=== PATIENT | male | born 1970 | race Two or more races ===

== ENCOUNTER 2018-08-25 10:14 | Emergency (ER) | payer MEDICAID ==
[~2018-08-25] VITALS: Ht 177.8 cm; Wt 82.0 kg
[~2018-08-25 10:14] MED LIST: BUSP10TA3 PO; CARB200T6 PO; CLOT15CR2 TP; OLAN15TA3 PO; QUET200T PO; QUET400T PO; TRIA15CR61 TP; TRIA1CAP6 PO
[2018-08-25] MEDS ORDERED: BACITRACIN ZINC OINT UDPKT TOP ONE (13:15)
[2018-08-25 13:57] VITALS: BP 181/96
== END 2018-08-25 13:59 | disposition home or self-care (01) ==
LOC: ER 10:14
DX: T14.8XXA Other injury of unspecified body region, initial encounter (principal); L40.9 Psoriasis, unspecified; X58.XXXA Exposure to other specified factors, initial encounter; Y93.89 Activity, other specified; Y92.89 Other specified places as the place of occurrence of the external cause; Y99.8 Other external cause status; Z79.899 Other long term (current) drug therapy
CPT/HCPCS: 99283